=== PATIENT | female | born 1980 ===

== ENCOUNTER 2019-02-01 22:45 | Emergency (ER) | payer MEDICAID ==
[2019-02-01 23:49] LABS: Basophils # (Auto) 0.1 K/mm3 (0.0-0.1); Eosinophils # (Auto) 0.2 K/mm3 (0.0-0.4); Eosinophils % (Auto) 1.8 % (0.0-4.3); Hematocrit 34.3 % (30.3-42.9); Hemoglobin 10.8 gm/dl (10.1-14.3); Lymphocytes # (Auto) 2.4 K/mm3 (1.2-5.4); Lymphocytes % (Auto) 18.9 % (13.4-35.0); Mean Corpuscular HGB Conc 31 % (30-34); Mean Corpuscular Volume 76 fl (79-97); Monocytes # (Auto) 0.6 K/mm3 (0.0-0.8); Monocytes % (Auto) 4.7 % (0.0-7.3); Platelet Count 470 K/mm3 (140-440); Red Blood Count 4.53 M/mm3 (3.65-5.03)
[2019-02-01] MEDS ORDERED: BOOSTRIX IM ONE (23:57)
[2019-02-02 00:02] LABS: BUN/Creatinine Ratio 16; Blood Urea Nitrogen 11 mg/dL (7-17); Calcium 9.7 mg/dL (8.4-10.2); Hemolysis Index 26
--- NOTE | 2019-02-02 00:02 | Emergency Department Report ---
HPI - General Chief Complaint: Psych Time Seen by Provider: 02/01/19 23:49 - HPI HPI: Room 16 The patient is a 38-year-old female presenting with chief complaint suicidal ideation. Patient states she's felt suicidal for years but this evening she had a "mental breakdown." The patient states she attempted to cut her wrists with a knife but had the knife taken away from her after only making superficial abrasion to her left wrist. Patient denies any other attempts at harming herself. Patient was brought in by police under a 1013 which documents the patient "made threats to harm self... Attempted to injure or injured himself." Location: Mental state Duration: [See above] Quality: Suicidal Severity: Severe Modifying factors: [see above] Context: [see above] Mode of transportation: [not driving] ED Past Medical Hx - Past Medical History Previous Medical History?: Yes Hx Arthritis: Yes Hx Psychiatric Treatment: Yes (depression) Additional medical history: thyroid problem, spine and back pain - Surgical History Past Surgical History?: Yes Hx Cholecystectomy: Yes Additional Surgical History: Total thyroidectomy secondary to thyroid CA, colon resection secondary to diverticulitis, colostomy with reversal. 2, bilateral tubal ligation - Family History Family history: no significant - Social History Smoking Status: Never Smoker Substance Use Type: None (denies illicit drug use), Alcohol (rarely) - Medications Home Medications: Home Medications Medication Instructions Recorded Confirmed Last Taken Type ALPRAZolam [Xanax TAB] 0.5 mg PO DAILY 02/02/19 02/02/19 Unknown History AtorvaSTATin [Lipitor] 40 mg PO QHS 02/02/19 02/02/19 Unknown History Metoclopramide [Reglan TAB] 1 tab PO DAILY 02/02/19 02/02/19 Unknown History Thyroid,Pork [[place] Thyroid] 240 mg PO QDAY 02/02/19 02/02/19 Unknown History ED Review of Systems ROS: Stated complaint: PSYCHE Other details as noted in HPI Constitutional: no symptoms reported Eyes: denies: eye pain ENT: denies: throat pain Respiratory: no symptoms reported Cardiovascular: denies: chest pain Endocrine: no symptoms reported Gastrointestinal: denies: abdominal pain Genitourinary: denies: dysuria Musculoskeletal: denies: back pain Skin: denies: lesions Neurological: denies: headache Physical Exam - Physical Exam Vital Signs: Vital Signs 02/01/19 02/01/19 22:54 23:09 Temperature 98.5 F 98.3 F Pulse Rate 116 H 102 H Respiratory 18 18 Rate Blood Pressure 133/96 152/100 Blood Pressure 152/100 [Right] O2 Sat by Pulse 92 99 Oximetry Physical Exam: GENERAL: The patient is well-developed well-nourished female sitting in chair not appearing to be in acute distress. [] HEENT: Normocephalic. Atraumatic. Extraocular motions are intact. Patient has moist mucous membranes. NECK: Supple. Trachea midline CHEST/LUNGS: Clear to auscultation. There is no respiratory distress noted. HEART/CARDIOVASCULAR: Regular. There is no tachycardia. There is no gallop rub or murmur. ABDOMEN: Abdomen is soft, nontender. Patient has normal bowel sounds. There is no abdominal distention. SKIN: There is a very superficial abrasion to the left wrist. There is no edema. There is no diaphoresis. NEURO: The patient is awake, alert, and oriented. The patient is cooperative. The patient has normal speech MUSCULOSKELETAL: There is no evidence of acute injury. ED Course Vital Signs 02/01/19 02/01/19 22:54 23:09 Temperature 98.5 F 98.3 F Pulse Rate 116 H 102 H Respiratory 18 18 Rate Blood Pressure 133/96 152/100 Blood Pressure 152/100 [Right] O2 Sat by Pulse 92 99 Oximetry ED Medical Decision Making - Lab Data Result diagrams: 02/01/19 23:32 02/01/19 23:32 Laboratory Tests 02/01/19 02/01/19 02/01/19 23:32 23:32 23:32 WBC RBC Hgb Hct MCV MCH MCHC RDW Plt Count Lymph % (Auto) [place] % (Auto) Eos % (Auto) Baso % (Auto) Lymph # [place] # Eos # Baso # Seg Neutrophils % Seg Neutrophils # Sodium 143 Potassium 4.2 Chloride 104.3 Carbon Dioxide 23 Anion Gap 20 BUN 11 Creatinine 0.7 Estimated GFR > 60 BUN/Creatinine Ratio 16 Glucose 125 H Calcium 9.7 Urine Color Urine Turbidity Urine pH Ur Specific [place] Urine Protein Urine Glucose (UA) Urine Ketones Urine Blood Urine Nitrite Urine Bilirubin Urine Urobilinogen Ur Leukocyte Esterase Urine WBC (Auto) Urine RBC (Auto) U Epithel Cells (Auto) Urine Bacteria (Auto) Hyaline Casts Urine Mucus Salicylates 0.6 L Urine Opiates Screen Urine Methadone Screen Acetaminophen < 5.0 L Ur Barbiturates Screen Ur Phencyclidine Scrn Ur Amphetamines Screen Urine Cocaine Screen U Marijuana (THC) Screen Plasma/Serum Alcohol 02/01/19 02/01/19 02/02/19 23:32 23:32 00:52 WBC 12.9 H RBC 4.53 Hgb 10.8 Hct 34.3 MCV 76 L MCH 24 L MCHC 31 RDW 20.1 H Plt Count 470 H Lymph % (Auto) 18.9 [place] % (Auto) 4.7 Eos % (Auto) 1.8 Baso % (Auto) 1.0 Lymph # 2.4 [place] # 0.6 Eos # 0.2 Baso # 0.1 Seg Neutrophils % 73.6 H Seg Neutrophils # 9.5 H Sodium Potassium Chloride Carbon Dioxide Anion Gap BUN Creatinine Estimated GFR BUN/Creatinine Ratio Glucose Calcium Urine Color Yellow Urine Turbidity Slightly-cloudy Urine pH 5.0 Ur Specific [place] 1.024 Urine Protein 100 mg/dl Urine Glucose (UA) Neg Urine Ketones Neg Urine Blood Neg Urine Nitrite Neg Urine Bilirubin Neg Urine Urobilinogen < 2.0 Ur Leukocyte Esterase Neg Urine WBC (Auto) 3.0 Urine RBC (Auto) 3.0 U Epithel Cells (Auto) 2.0 Urine Bacteria (Auto) 2+ Hyaline Casts 1 Urine Mucus 1+ Salicylates Urine Opiates Screen Urine Methadone Screen Acetaminophen Ur Barbiturates Screen Ur Phencyclidine Scrn Ur Amphetamines Screen Urine Cocaine Screen U Marijuana (THC) Screen Plasma/Serum Alcohol < 0.01 02/02/19 00:52 WBC RBC Hgb Hct MCV MCH MCHC RDW Plt Count Lymph % (Auto) [place] % (Auto) Eos % (Auto) Baso % (Auto) Lymph # [place] # Eos # Baso # Seg Neutrophils % Seg Neutrophils # Sodium Potassium Chloride Carbon Dioxide Anion Gap BUN Creatinine Estimated GFR BUN/Creatinine Ratio Glucose Calcium Urine Color Urine Turbidity Urine pH Ur Specific [place] Urine Protein Urine Glucose (UA) Urine Ketones Urine Blood Urine Nitrite Urine Bilirubin Urine Urobilinogen Ur Leukocyte Esterase Urine WBC (Auto) Urine RBC (Auto) U Epithel Cells (Auto) Urine Bacteria (Auto) Hyaline Casts Urine Mucus Salicylates Urine Opiates Screen Presumptive negative Urine Methadone Screen Presumptive negative Acetaminophen Ur Barbiturates Screen Presumptive negative Ur Phencyclidine Scrn Presumptive negative Ur Amphetamines Screen Presumptive negative Urine Cocaine Screen Presumptive negative U Marijuana (THC) Screen Presumptive negative Plasma/Serum Alcohol - Differential Diagnosis suicidal ideation Critical care attestation.: If time is entered above; I have spent that time in minutes in the direct care of this critically ill patient, excluding procedure time. ED Disposition Clinical Impression: Suicidal ideation, Abrasion of left wrist Disposition: [id number] PSY HOSP/PSY UNIT Is pt being admited?: No Does the pt Need Aspirin: No Condition: Serious Time of Disposition: 00:03 (awaiting acceptance)
[2019-02-02 00:21] LABS: Red Cell Distribution Width 20.1 % (13.2-15.2)
[2019-02-02 01:12] LABS: Bacteria,Urine 2+ /HPF (Negative); Bilirubin,Urine NEG (Negative); Blood,Urine NEG (Negative); Color,Urine Yellow (Yellow); Hyaline Casts,Urine 1 /LPF; Mucus,Urine 1+ /HPF; Urobilinogen,Urine < 2.0 mg/dL (<2.0)
[2019-02-02 01:29] LABS: Amphetamine Screen,Urine PRESUMPTIVE NEGATIVE; Cannabinoid Screen,Urine PRESUMPTIVE NEGATIVE; Cocaine Screen,Urine PRESUMPTIVE NEGATIVE; Methadone Screen,Urine PRESUMPTIVE NEGATIVE; Opiate Screen,Urine PRESUMPTIVE NEGATIVE
[2019-02-02 02:15] LABS: Benzodiazepines Screen,Urine PRESUMPTIVE POSITIVE
[2019-02-02] MEDS ORDERED: XANAX ONE (02:31)
[2019-02-02] MEDS: XANAX PO SCH ×2 (02:32→10:54)
[2019-02-02 07:43] VITALS: BP 148/76
[2019-02-02] MEDS ORDERED: THYROID PORK PO SCH (10:00)
== END 2019-02-02 12:18 ==
LOC: EEVIPCON 22:45 → ED 22:45
DX: S60.812A Abrasion of left wrist, initial encounter (principal); F32.9 Major depressive disorder, single episode, unspecified; M19.90 Unspecified osteoarthritis, unspecified site; Z90.49 Acquired absence of other specified parts of digestive tract; Z98.890 Other specified postprocedural states; Z85.850 Personal history of malignant neoplasm of thyroid; Z90.89 Acquired absence of other organs; Z98.51 Tubal ligation status; Z88.6 Allergy status to analgesic agent; X78.1XXA Intentional self-harm by knife, initial encounter; Y93.89 Activity, other specified; Y92.89 Other specified places as the place of occurrence of the external cause; Y99.8 Other external cause status
CPT/HCPCS: 36415; 80048; 80307; 81001; 84703; 85025; 90471; 90715; 99285; G0480; 80320